=== PATIENT | female | born 1960 | race Caucasian/White ===

== ENCOUNTER 2017-05-16 11:32 | Emergency (ER) | payer OTHER ==
[~2017-05-16] VITALS: Ht 157.5 cm; Wt 63.0 kg
[2017-05-16] MEDS ORDERED: AROMASIN25 MG PO (11:43)
--- NOTE | 2017-05-17 15:32 | EKG ---
[facility] [address] [address] [place] [address] Signed Normal sinus rhythm Normal ECG No previous ECGs available Confirmed by MARY JO COLLADO MD ([id number] on 05/17/2017 3:32:35 PM Electronically Signed By: MARY JO COLLADO MD 05/17/17 1532 PATIENT NAME: DENISA BOWLES Electrocardiogram DATE OF : 64 PHYSICIAN: MARY JO COLLADO MD REPORT #: [id number] REPORT IS CONFIDENTIAL AND NOT TO BE RELEASED WITHOUT AUTHORIZATION
== END 2017-05-16 15:18 | disposition home or self-care (01) ==
LOC: ED 11:32
DX: R07.9 Chest pain, unspecified (principal); E80.7 Disorder of bilirubin metabolism, unspecified; Z85.3 Personal history of malignant neoplasm of breast; Z79.899 Other long term (current) drug therapy
CPT/HCPCS: 71020; 80053; 83690; 84484; 85025; 93005; 93010; 99284